=== PATIENT | female | born 1995 | race African-American/Black ===

== ENCOUNTER 2018-01-10 12:24 | Emergency (ER) | payer SELFPAY ==
[2018-01-10] MEDS ORDERED: predniSONE 20 MG TAB ONE (12:37)
== END 2018-01-10 13:02 | disposition home or self-care (01) ==
LOC: NAV ERS 12:24
DX: J45.901 Unspecified asthma with (acute) exacerbation (principal); G43.909 Migraine, unspecified, not intractable, without status migrainosus; Z87.891 Personal history of nicotine dependence; Z79.899 Other long term (current) drug therapy
CPT/HCPCS: J7506; J7620